=== PATIENT | male | born 1985 | race Caucasian/White ===

== ENCOUNTER 2022-09-07 15:45 | Emergency (ER) | payer BC ==
[2022-09-07 16:22] LABS: Absolute Neutrophil Ct (ANC) 6.93 x10^3/uL (1.4-6.9); BASOPHIL % 0.4 % (0.0-0.4); Basophil (Absolute #) 0.04 x10^3/uL (0-0.4); Eosinophil % 2.6 % (0.00-5.0); Eosinophil (Absolute #) 0.28 x10^3/uL (0-0.5); Hematocrit 45.3 % (42-50); Hemoglobin 15.4 g/dL (12.5-18.0); IMMATURE GRAN # 0.03 x10^3u/L (0.00-0.03); IMMATURE GRAN % 0.3 % (0.00-0.4); Lymphocyte (Absolute #) 2.54 x10^3/uL (1.0-4.6); Lymphocytes % 23.2 % (24.0-44.0); Mean Cell Volume 86.1 fL (78-100); Mean Corpuscular Hemoglobin 29.3 pg (26-32); Mean Platelet Volume 9.5 fL (7.5-11.0); Monocyte (Absolute #) 1.14 x10^3/uL (0.0-1.3); Monocytes % 10.4 % (0.0-12.0); Neutrophil % 63.1 % (36.0-66.0); Platelet Count 252 x10^3/uL (150-450); Red Blood Count 5.26 x10^6/uL (4.1-5.6); Red Cell Distribution Width 12.9 % (11.5-14.0)
--- NOTE | 2022-09-07 16:33 | XRAY ---
Indication: Chest pain. Comparison: None Portable chest demonstrates subtle patchy groundglass airspace disease bilaterally without consolidation/large effusion. Remaining heart and bony thorax normal.
[2022-09-07 16:46] LABS: ALBUMIN 4.3 g/dL (3.5-5.0); ALKALINE PHOSPHATASE 87 U/L (38-126); ANION GAP 13.5 MEQ/L (5-15); BLOOD UREA NITROGEN 13 mg/dL (9-20); CHLORIDE 104 mmol/L (98-107); Calcium 9.1 mg/dL (8.4-10.2); Carbon Dioxide 27 mmol/L (22-30); Creatinine 1 0.79 mg/dL (0.66-1.25); EST GLOMERULAR FILTRATION RATE > 60.0 ML/MIN; Glucose 88 mg/dL (74-106); NT PRO BNPII 31.3 pg/mL (<300); Potassium 3.8 mmol/L (3.5-5.1); SGOT/AST 38 U/L (17-59); SGPT/ALT 42 U/L (0-50); SODIUM 141 mmol/L (137-145); Total Protein 7.3 g/dL (6.3-8.2)
[2022-09-07] MEDS ORDERED: BABY ASPIRIN 81 MG CHEW ONE (16:49)
[2022-09-07] MEDS: BABY ASPIRIN 81 MG CHEW PO ONE (16:50)
--- NOTE | 2022-09-07 17:12 | ERPHSYRPT ---
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 Pt rested for approx 30 minutes and pain remained. Triage Nursing Assessment: Pt alert and oriented x3. No apprent respiratory distress. Skin w/p/d. S1 and S2 ascultated. Pt resting easy on cot. No lower extremity edema. Physician History: Patient is here with chest pain. Left-sided. Patient states that pain started at work prior to arrival. Patient states he has a long history of chest pain. However, they have not found a cardiac source for this. Patient has had a normal echocardiogram, normal stress test, had a heart catheterization a few years ago that was also normal. Patient follows with Dr. Bender, cardiology. He has no falls or trauma. States that the pain radiated slightly into the left jaw. Otherwise no falls, trauma, fever, chills. No cough, cold, congestion. Timing/Duration: today Severity: moderate Modifying Factors: Improves With: medication, other Allergies/Adverse Reactions: No Known Drug Allergies Allergy (Unverified 09/07/22 15:47) Home Medications: Alprazolam [Xanax] 0.5 mg PO Q6-8HPRN PRN 09/07/22 [History] Metoprolol Tartrate 50 mg [Lopressor 50 MG] 50 mg PO DAILY 09/07/22 [History] Omeprazole 40 mg PO DAILY 09/07/22 [History] Hx Tetanus, Diphtheria Vaccination/Date Given: Yes Hx Influenza Vaccination/Date Given: No Hx Pneumococcal Vaccination/Date Given: No Travel Risk - International Travel Have you traveled outside of the country in past 3 weeks: No - Coronavirus Screening Are you exhibiting any of the following symptoms?: No Close contact with a COVID-19 positive Pt in past 14-21 Days: No - Vaccine Status Have you recieved a Covid-19 vaccination: No - Review of Systems Constitutional: No Fever, No Chills Eyes: No Symptoms Ears, Nose, & Throat: No Symptoms Respiratory: Dyspnea, No Cough Cardiac: Chest Pain, No Edema, No Syncope Abdominal/Gastrointestinal: No Abdominal Pain, No Nausea, No Vomiting, No Di arrhea Genitourinary Symptoms: No Dysuria Musculoskeletal: No Back Pain, No Neck Pain Skin: No Rash Neurological: No Dizziness, No Focal Weakness, No Sensory Changes Psychological: No Symptoms Endocrine: No Symptoms All Other Systems: Reviewed and Negative - Past Medical History Pertinent Past Medical History: Yes Neurological History: No Pertinent History Cardiac History: Hypertension Respiratory History: Sleep Apnea Endocrine Medical History: No Pertinent History GI Medical History: GERD, Gallbladder Disease - Past Surgical History Past Surgical History: Yes Gastrointestinal: Cholecystectomy - Social History Smoking Status: Never smoker Exposure to second hand smoke: No Drug Use: none Patient Lives Alone: No - Nursing Vital Signs Nursing Vital Signs: Initial Vital Signs Temperature 99.1 F 09/07/22 15:47 Pulse Rate 97 H 09/07/22 15:47 Respiratory Rate 22 09/07/22 15:47 Blood Pressure 137/95 09/07/22 15:47 O2 Sat by Pulse Oximetry 100 09/07/22 15:47 Pain Scale Pain Intensity 2 - Physical Exam General Appearance: no apparent distress, alert Eye Exam: PERRL/EOMI, eyes nml inspection Ears, Nose, Throat Exam: normal ENT inspection, TMs normal, pharynx normal, moist mucous membranes Neck Exam: normal inspection, non-tender, supple, full range of motion Respiratory Exam: normal breath sounds, lungs clear, No respiratory distress Cardiovascular Exam: regular rate/rhythm, normal heart sounds, normal peripheral pulses Gastrointestinal/Abdomen Exam: soft, normal bowel sounds, No tenderness, No mass Back Exam: normal inspection, normal range of motion, No CVA tenderness, No vertebral tenderness Extremity Exam: normal inspection, normal range of motion, pelvis stable Neurologic Exam: alert, oriented x 3, cooperative, normal mood/affect, nml cerebellar function, nml station & gait, sensation nml, No motor deficits Skin Exam: normal color, warm, dry, No rash Lymphatic Exam: No adenopathy SpO2: 98 - Course Nursing assessment & vital signs reviewed: Yes EKG Interpreted by Me: Sinus Rhythm Ordered Tests: Active Orders 24 hr Category Date Time Status Repertoire Manager STAT Care 09/07/22 16:01 Active EKG-ER Only STAT Care 09/07/22 16:01 Active IV Insertion STAT Care 09/07/22 16:01 Active CHEST 1 VIEW (PORTABLE) Stat Exams 09/07/22 16:01 Completed CBC W DIFF Stat Lab 09/07/22 16:00 Completed CMP Stat Lab 09/07/22 16:00 Completed NT PRO BNPII Stat Lab 09/07/22 16:00 Completed TROPONIN Q4H Lab 09/07/22 16:00 Completed TROPONIN Q4H Lab 09/07/22 20:15 Ordered TROPONIN Q4H Lab 09/08/22 00:15 Ordered Medication Summary Discontinued Medications Generic Name Dose Route Start Last Admin Trade Name Cecilioq PRN Reason Stop Dose Admin Aspirin 324 mg 09/07/22 16:01 09/07/22 16:50 Aspirin 81 Mg Tab.Chew PO 09/07/22 16:02 324 mg STAT ONE Administration Aspirin Confirm 09/07/22 16:49 Aspirin 81 Mg Tab.Chew Administered 09/07/22 16:50 Dose 324 mg .ROUTE .[employer]-MED ONE Lab/Rad Data: Laboratory Result Diagrams 09/07/22 16:00 09/07/22 16:00 Laboratory Results 09/07/22 09/07/22 09/07/22 Range/Units 16:00 16:00 16:00 WBC 11.0 H (4.0-10.5) x10^3/uL RBC 5.26 (4.1-5.6) x10^6/uL Hgb 15.4 (12.5-18.0) g/dL Hct 45.3 (42-50) % MCV 86.1 (78-100) fL MCH 29.3 (26-32) pg MCHC 34.0 (32-36) g/dL RDW 12.9 (11.5-14.0) % Plt Count 252 (150-450) x10^3/uL MPV 9.5 (7.5-11.0) fL Gran % 63.1 (36.0-66.0) % Immature Gran % (Auto) 0.3 (0.00-0.4) % Nucleat RBC Rel Count 0.0 (0.00-0.1) % Eos # (Auto) 0.28 (0-0.5) x10^3/uL Immature Gran # (Auto) 0.03 (0.00-0.03) x10^3u/L Absolute Lymphs (auto) 2.54 (1.0-4.6) x10^3/uL Absolute Monos (auto) 1.14 (0.0-1.3) x10^3/uL Absolute Nucleated RBC 0.00 (0.00-0.01) x10^3u/L Lymphocytes % 23.2 L (24.0-44.0) % Monocytes % 10.4 (0.0-12.0) % Eosinophils % 2.6 (0.00-5.0) % Basophils % 0.4 (0.0-0.4) % Absolute Granulocytes 6.93 H (1.4-6.9) x10^3/uL Basophils # 0.04 (0-0.4) x10^3/uL Sodium 141 (137-145) mmol/L Potassium 3.8 (3.5-5.1) mmol/L Chloride 104 (98-107) mmol/L Carbon Dioxide 27 (22-30) mmol/L Anion Gap 13.5 (5-15) MEQ/L BUN 13 (9-20) mg/dL Creatinine 0.79 (0.66-1.25) mg/dL Estimated GFR > 60.0 ML/MIN Glucose 88 (74-106) mg/dL Calcium 9.1 (8.4-10.2) mg/dL Total Bilirubin 0.70 (0.2-1.3) mg/dL AST 38 (17-59) U/L ALT 42 (0-50) U/L Alkaline Phosphatase 87 (38-126) U/L Troponin I < 0.012 (0.000-0.034) ng/mL NT-Pro-B Natriuret Pep 31.3 (<300) pg/mL Serum Total Protein 7.3 (6.3-8.2) g/dL Albumin 4.3 (3.5-5.0) g/dL - Progress Progress Note: 09/07/22 17:43 differential diagnosis includes: PNA, STEMI, NSTEMI, other infection, musculoskeletal pain, pneumothorax - We'll obtain basic labs, fluids, EKG, troponin, chest x-ray - I feel comfortable with one time negative troponin given symptoms have improved - EKG shows no ST changes - my read. See full read below. - O2 saturations consistently greater than 95%. - CXR shows PNA- we will treat with antibiotics - no other obvious lab abnormalities Patient has pneumonia as above. Patient has a long history of cardiac work-up that has returned negative. Do recommend he follows up with his mortgage specialist in the next week. Otherwise return here sooner for new or changing symptoms. Patient may also see a baking factory worker in case there is a component of autoimmune disorder with this. Plan for discharge home at this point in time. Counseled pt/family regarding: lab results, diagnosis, need for follow-up, rad results - Departure Departure Disposition: Home Clinical Impression: Atypical chest pain, Pneumonia Condition: Good Critical Care Time: No Referrals: PARESH ROMERO [Primary Care Provider] - Follow up/PCP as directed Instructions: Pneumonia, Adult (DC), Chest Pain (DC) Additional Instructions: Kacey Buckner MD - [facility] Address: [address] [place] [address] [place] [address] Appointments: [email or web address] Prescriptions: Amox Tr/Potass Clav. 875 mg [Augmentin 875-125 Tablet] 875 mg PO BID 10 Days #20 tablet
[2022-09-07 17:42] VITALS: BP 120/68; PULSE 85
[2022-09-07 17:46] VITALS: O2SAT 98
== END 2022-09-07 17:39 | disposition home or self-care (01) ==
LOC: ED 15:45
DX: J18.9 Pneumonia, unspecified organism (principal); R07.89 Other chest pain; I10 Essential (primary) hypertension; Z79.899 Other long term (current) drug therapy; Z28.310 Unvaccinated for COVID-19
CPT/HCPCS: 36000; 36415; 71045; 80053; 83880; 84484; 85025; 93005; 93041; 99284; A9270-GY